=== PATIENT | male | born 1965 | race Caucasian/White ===

== ENCOUNTER → 2016-12-06 | Outpatient (CLI) | payer MEDICARE, BC ==
[2016-12-06 12:24] LABS: Basophils # (A) 0.1 k/uL (0-0.2); Basophils % (A) 1 %; CH 29.9; CHCM 33.4; Eosinophils # (A) 1.1 k/uL (0-0.7); Eosinophils % (A) 10 %; HCT 41.7 % (39.0-53.0); HDW 2.89; HGB 13.7 gm/dL (13.0-17.5); Luc # (Auto) 0.22; Luc % (Auto) 2; Lymphocytes # (A) 3.2 k/uL (1.0-4.8); Lymphocytes % (A) 29 %; MCH 29.5 pg (25.0-35.0); MCHC 32.8 g/dL (31.0-37.0); MCV 90.1 fL (80.0-100.0); Mean Platelet Volume 7.3; Monocytes # (A) 0.4 k/uL (0-1.0); Monocytes % (A) 3 %; Neutrophils # (A) 5.9 k/uL (1.3-7.7); Neutrophils % (A) 54 %; RBC 4.63 m/uL (4.30-5.90); RDW 13.5 % (11.5-15.5); WBC 10.9 k/uL (3.8-10.6); WBC (Perox) 11.08
[2016-12-06 12:55] LABS: ALT 33 U/L (21-72); AST 25 U/L (17-59); Alkaline Phosphatase 76 U/L (38-126); Anion Gap 9 mmol/L; Blood Urea Nitrogen 10 mg/dL (9-20); Calcium 9.4 mg/dL (8.4-10.2); Carbon Dioxide 29 mmol/L (22-30); Chloride 106 mmol/L (98-107); Glucose 89 mg/dL (74-99); Non-African American GFR(MDRD) >60 (>60 ml/min/1.73 sqM); Potassium 4.5 mmol/L (3.5-5.1); Sodium 144 mmol/L (137-145); Total Bilirubin 0.8 mg/dL (0.2-1.3)
[2016-12-06 13:42] LABS: Vitamin B12 450 pg/mL (239-931)
[2016-12-15 16:28] LABS: Mis test requested (Blood) JC Virus Ab Titer
== END | disposition home or self-care (01) ==
LOC: LABWHC1 11:11
PROVIDERS: ATTEND Psychiatry & Neurology Neurology
DX: Z51.81 Encounter for therapeutic drug level monitoring (principal); Z79.899 Other long term (current) drug therapy
CPT/HCPCS: 36415; 80053; 82306; 82607; 82747; 84443; 85025

== ENCOUNTER → 2017-04-26 | Outpatient (CLI) | payer BC, MEDICARE ==
--- NOTE | 2017-04-26 14:27 | MR ---
EXAMINATION TYPE: MR brain/cspine wo/w DATE OF EXAM: 04/26/2017 COMPARISON: Prior MR cervical spine 08/20/2015, MR brain 06/15/2015 HISTORY: MS TECHNIQUE: Multiplanar, multisequence images of the brain and cervical spine is performed without and with IV co ntrast, utilizing 15 mL intravenous MultiHance . FINDINGS: Cervical spine: Mild degenerative disc changes are again noted. Cervical cord signal is stable, abnor mal increased signal on T2-weighted images at the C5 level to the left midline and at C3-4 to the rig ht again noted. Loss of disc height and signal greatest at C5-6. Lateral extension of endplate disc c omplex results in left-sided foraminal encroachment left greater than right, anterolateral mass effec t on the thecal sac as on prior exam. No significant central canal stenosis. Cervical medullary junct ion is maintained. No abnormal enhancement following contrast administration. IMPRESSION: Stable findings. Brain MRI: There is no restricted diffusion. There is no extra-axial fluid collection. The white mat ter demyelination changes are again noted as on prior exam in the periventricular, pericallosal and s ubcortical locations. There is perhaps slight interval increase in size of left frontal lesions on ax ial image 19 5 fractions of a millimeter, there are differences in technique however. No abnormal enh ancement following contrast administration. The ventricular system and cisternal spaces are normal in size and appearance. The brain volume is age appropriate. Midline structures demonstrate normal morphology. The craniocervical junction appears within normal limits. Post contrast images demonstrate no abnormal enhancement. The dural venous sinuses appear pa tent. The visualized sinuses are clear and the globes are intact. IMPRESSION: Findings are similar to prior exam and compatible with patient's history of multiple scle rosis.
== END | disposition home or self-care (01) ==
LOC: RADMRIMAIN 12:17
PROVIDERS: ATTEND Psychiatry & Neurology Neurology
DX: G35 Multiple sclerosis (principal)
CPT/HCPCS: 70553; 72156; A9577

== ENCOUNTER → 2017-04-27 | Outpatient (CLI) | payer BC, MEDICARE ==
--- NOTE | 2017-04-27 13:54 | MR ---
EXAMINATION TYPE: MR thoracic spine wo/w con DATE OF EXAM: 04/27/2017 COMPARISON: 08/20/2015 HISTORY: Multiple Sclerosis CONTRAST: Standard multiplanar, multisequence MRI departmental protocol utilizing 15 mL intravenous MultiHance gadolinium contrast. FINDINGS: At the T6-T7 level there is a small central disc herniation with effacement of thecal sac. This does result in mild mass effect upon the spinal cord. At T7-T8 there is a tiny right paracentral disc protrusion. No cord contact. Mild effacement of theca l sac. Moderate degenerative disc disease. At T8-T9 there is a small right paracentral disc herniation with effacement of thecal sac. No definit e cord contact. Although there is mass effect on the cord secondary to thecal sac compression anterio rly laterally on the right. At T9-T10 is a broad-based right paracentral disc herniation with moderate effacement of thecal sac. Mild right-sided foraminal encroachment. At T10-T11 there is a central disc bulge but no cord contact or canal stenosis. Neural foramina paten t. Remaining levels demonstrate no disc herniation, canal stenosis or foraminal encroachment. No definite abnormal signal within the spinal cord on today's exam. Motion artifact limits distal mar gin of the spinal cord including the conus medullaris. IMPRESSION: 1. Multilevel small disc herniation or protrusions as discussed above with the most marked changes se en at T6-T7 and T9-T10 with right moderate effacement of thecal sac. Although there is no cord contac t there is mass effect on the spinal cord due to thecal sac compression. Findings appear stable from previous exam. 2. No definite abnormal signal or enhancement within the spinal cord on today's exam.
== END | disposition home or self-care (01) ==
LOC: RADMRIMAIN 12:11
PROVIDERS: ATTEND Psychiatry & Neurology Neurology
DX: M51.24 Other intervertebral disc displacement, thoracic region (principal)
CPT/HCPCS: 72157; A9577

== ENCOUNTER → 2018-01-09 | Outpatient (CLI) | payer BC, MEDICARE ==
[2018-01-09 11:59] LABS: Basophils # (A) 0.1 k/uL (0-0.2); Basophils % (A) 1 %; Eosinophils # (A) 1.2 k/uL (0-0.7); Eosinophils % (A) 12 %; HCT 39.1 % (39.0-53.0); HGB 13.7 gm/dL (13.0-17.5); Lymphocytes # (A) 3.5 k/uL (1.0-4.8); Lymphocytes % (A) 33 %; MCH 29.4 pg (25.0-35.0); MCHC 35.1 g/dL (31.0-37.0); MCV 83.6 fL (80.0-100.0); Mean Platelet Volume 6.6; Monocytes # (A) 0.4 k/uL (0-1.0); Monocytes % (A) 4 %; Neutrophils # (A) 5.2 k/uL (1.3-7.7); Neutrophils % (A) 49 %; Platelet Count 286 k/uL (150-450); RBC 4.67 m/uL (4.30-5.90); RDW 13.5 % (11.5-15.5); WBC 10.6 k/uL (3.8-10.6)
[2018-01-09 12:09] LABS: ALT 21 U/L (21-72); AST 23 U/L (17-59); Albumin 4.3 g/dL (3.5-5.0); Alkaline Phosphatase 97 U/L (38-126); Anion Gap 12 mmol/L; Blood Urea Nitrogen 17 mg/dL (9-20); Calcium 9.2 mg/dL (8.4-10.2); Carbon Dioxide 25 mmol/L (22-30); Chloride 108 mmol/L (98-107); Glucose 119 mg/dL (74-99); Potassium 3.8 mmol/L (3.5-5.1); Sodium 145 mmol/L (137-145); Total Bilirubin 0.3 mg/dL (0.2-1.3); Total Protein 6.9 g/dL (6.3-8.2)
== END | disposition home or self-care (01) ==
LOC: LABWHC1 11:32
PROVIDERS: ATTEND Psychiatry & Neurology Neurology
DX: G35 Multiple sclerosis (principal); T50.905A Adverse effect of unspecified drugs, medicaments and biological substances, initial encounter; Z79.899 Other long term (current) drug therapy
CPT/HCPCS: 36415; 80053; 82306; 82607; 85025; 86704; 86706; 87340; 87798

== ENCOUNTER → 2018-08-14 | Outpatient (CLI) | payer BC, MEDICARE ==
--- NOTE | 2018-08-14 20:57 | MR ---
EXAMINATION TYPE: MR brain/cspine wo/w DATE OF EXAM: 08/14/2018 COMPARISON: Prior MRI brain and cervical spine April 26, 2017 HISTORY: Neck pain, rt arm weakness, F/U MS, TECHNIQUE: Multiplanar, multisequence images of the cervical spine, brain, and brainstem are all performed witho ut and with IV contrast, utilizing 7.5 mL intravenous Gadavist gadolinium contrast is administered in travenously. Demyelinating disease protocol with additional Sagittal Flair sequence performed. Due t o patient spasm and cramping could not complete additional PD sagittal sequence cervical spine. FINDINGS: BRAIN: T2 Lesions Present : Yes Approximate Number of Lesions: Estimate approximately 40 Locations Identified : Predominantly deep and periventricular Size of Reference Lesion(s): Only T2 axial image is performed without significant artifact. Stable 5 mm left frontal lesion at lev el of centrum semiovale axial image 23 is noted for reference. Enhancing Lesion(s) Present: Postcontrast brain images cannot be performed due to patient's symptoms. T1 Hypointense Lesion(s) Present: Yes Change from Prior: Difficult to accurately assess Diffusion weighted images demonstrate no evidence of a recent infarct or other diffusion abnormality. There is no worrisome extra-axial fluid collection. There is ventricular and sulcal prominence cons istent with mild diffuse cerebral atrophy redemonstrated. Midline structures demonstrate normal morphology. The craniocervical junction appears within normal limits. Normal vascular flow voids on noncontrast T2-weighted images. The visualized sinuses are scotty r and the globes are intact. IMPRESSION: Markedly suboptimal study due to patient's symptoms. Background mild diffuse cerebral atr ophy and fairly moderate white matter changes most likely on basis of known multiple sclerosis. Satis factory post contrast imaging of brain are performed. No obvious change but suboptimal study noted. C-SPINE: FINDINGS: Significant motion artifact degradation noted. Sagittal images of the cervical spine show t he craniocervical junction to remain within normal limits. The cervical and upper thoracic spinal co rd is grossly normal in course, caliber, and signal. Vertebral alignment is stable and anatomic. Th e vertebral body and intravertebral disk heights are normal. Small posterior disc herniation C5-C6 an d C6-C7 level are redemonstrated effaces the anterior thecal sac. The bone marrow signal intensity is within normal limits. No obvious abnormal enhancement but artifact degradation is noted. Axial images show significant artifact degradation but C2-C3 through C4-C5 levels are felt within nor mal limits. Axial images at C5-C6 level demonstrates broad-based posterior disc protrusion effacing anterior thec al sac and causing moderate bilateral neural foraminal narrowing axilla image 25. No significant lauren ge from prior. Axial images at C6-C7 level show focal left paracentral disc protrusion effacing anterolateral thecal sac and causing asymmetric moderate left-sided neural foraminal narrowing on axial image 20 From prior. Right-sided neural foramen is patent. Axial images at C7-T1 level are felt within normal limits. IMPRESSION: Suboptimal study. No convincing evidence of demyelinating disease involvement. No suspici ous enhancement. Stable degenerative change C5-C6 level. New eccentric disc herniation C6-C7 level.
== END | disposition home or self-care (01) ==
LOC: RADMRIMAIN 18:02
PROVIDERS: ATTEND Psychiatry & Neurology Neurology
DX: G31.89 Other specified degenerative diseases of nervous system (principal); G35 Multiple sclerosis; M50.223 Other cervical disc displacement at C6-C7 level; M47.812 Spondylosis without myelopathy or radiculopathy, cervical region; R90.89 Other abnormal findings on diagnostic imaging of central nervous system
CPT/HCPCS: 70553; 72156; A9585

== ENCOUNTER → 2018-08-15 | Outpatient (CLI) | payer BC, MEDICARE ==
--- NOTE | 2018-08-16 00:17 | MR ---
EXAMINATION TYPE: MR thoracic spine wo/w con DATE OF EXAM: 08/15/2018 COMPARISON: 04/27/2017 HISTORY: Multiple sclerosis weakness CONTRAST: Standard multiplanar, multisequence MRI departmental protocol utilizing 7.5 mL intravenous Gadavist g adolinium contrast. FINDINGS: Thoracic vertebra have fairly normal spacing and alignment. There is no compression fractur e. There is posterior spur formation of the endplates at C5-6 and slight encroachment on the spinal c anal. At T7-8 there is small posterior disc bulging. There is mild posterior disc herniation at T9-10 . I do not see any significant spinal stenosis. The thoracic spinal cord is fairly normal signal galdino josie. There is no edema. There is no thoracic compression fracture. The contrast images show no pathol ogic enhancement. IMPRESSION: Multilevel mild degenerative disc changes as above. No fracture. No evidence of demyelinating disease of the thoracic spinal cord. There is suggestion of increased signal in the cervical cord at C3 and C4 level that could relate to demyelinating disease.
== END | disposition home or self-care (01) ==
LOC: RADMRIMAIN 17:50
PROVIDERS: ATTEND Psychiatry & Neurology Neurology
DX: M51.24 Other intervertebral disc displacement, thoracic region (principal); G35 Multiple sclerosis
CPT/HCPCS: 72157; A9585

== ENCOUNTER → 2018-08-23 | Outpatient (CLI) | payer BC, MEDICARE ==
--- NOTE | 2018-08-23 11:36 | MR ---
EXAMINATION TYPE: MR brain w con DATE OF EXAM: 08/23/2018 COMPARISON: Recent MRI brain August 14, 2018 HISTORY: Multiple sclerosis TECHNIQUE: Multiplanar, multisequence images of the brain and brainstem is performed with IV contrast, utilizing 7.5 mL intravenous Gadavist . FINDINGS: Dynamic post contrast images fail to show enhancing lesions in the parenchyma bilaterally. Scattered lesions of T1 hypointensity and T2 hyperintensity are redemonstrated. IMPRESSION: No enhancing plaques to suggest active multiple sclerosis identified.
== END ==
LOC: RADMRIMAIN 10:48
PROVIDERS: ATTEND Psychiatry & Neurology Neurology
DX: G35 Multiple sclerosis (principal)
CPT/HCPCS: 70552; A9585

== ENCOUNTER → 2018-09-10 | Outpatient (CLI) | payer BC, MEDICARE ==
[~2018-09-10] MED LIST: SODIUM CHLORIDE 0.9% 500 ML 500 ML in EMPTY BAG 1 BAG IV PRN
[2018-09-10 10:24] VITALS: BP 167/99; PULSE 102; RESP 16; TEMP 98
== END ==
LOC: PROCWHC3 10:09
PROVIDERS: ATTEND Psychiatry & Neurology Neurology
DX: G35 Multiple sclerosis (principal)
CPT/HCPCS: 96365; J2930

== ENCOUNTER → 2019-01-17 | Outpatient (CLI) | payer MEDICARE, BC ==
[2019-01-17 11:09] LABS: Basophils # (A) 0.1 k/uL (0-0.2); Basophils % (A) 1 %; Eosinophils # (A) 0.4 k/uL (0-0.7); Eosinophils % (A) 3 %; HCT 45.2 % (39.0-53.0); HGB 14.8 gm/dL (13.0-17.5); Lymphocytes % (A) 18 %; MCH 28.3 pg (25.0-35.0); MCHC 32.7 g/dL (31.0-37.0); MCV 86.7 fL (80.0-100.0); Mean Platelet Volume 7.5; Monocytes # (A) 0.5 k/uL (0-1.0); Monocytes % (A) 5 %; Neutrophils # (A) 7.8 k/uL (1.3-7.7); Neutrophils % (A) 72 %; Platelet Count 340 k/uL (150-450); RBC 5.22 m/uL (4.30-5.90); WBC 10.8 k/uL (3.8-10.6)
[2019-01-17 16:15] LABS: Albumin 4.8 g/dL (3.80-4.90); Albumin/Globulin Ratio 2.82 (1.60-3.17); Anion Gap 10.8 mmol/L (4.00-12.00); Calcium 9.3 mg/dL (8.7-10.3); Carbon Dioxide 25.2 mmol/L (21.6-31.8); Globulin 1.7 g/dL (1.6-3.3); Potassium 4.2 mmol/L (3.5-5.5); Total Bilirubin 0.3 mg/dL (0.2-1.2); Total Protein 6.5 g/dL (6.2-8.2)
== END | disposition home or self-care (01) ==
LOC: LABWHC1 09:41
PROVIDERS: ATTEND Psychiatry & Neurology Neurology
DX: G35 Multiple sclerosis (principal); M46.02 Spinal enthesopathy, cervical region; Z91.81 History of falling
CPT/HCPCS: 36415; 80053; 85025

== ENCOUNTER → 2019-08-26 | Outpatient (CLI) | payer BC, MEDICARE ==
[2019-08-26 13:42] LABS: Basophils # (A) 0.2 k/uL (0-0.2); Basophils % (A) 2 %; Eosinophils # (A) 0.3 k/uL (0-0.7); Eosinophils % (A) 3 %; HCT 44.3 % (39.0-53.0); HGB 14.5 gm/dL (13.0-17.5); Lymphocytes # (A) 1.7 k/uL (1.0-4.8); Lymphocytes % (A) 15 %; MCH 29.4 pg (25.0-35.0); MCHC 32.7 g/dL (31.0-37.0); MCV 89.7 fL (80.0-100.0); Mean Platelet Volume 6.6; Monocytes # (A) 0.4 k/uL (0-1.0); Monocytes % (A) 4 %; Neutrophils # (A) 8.3 k/uL (1.3-7.7); Neutrophils % (A) 75 %; Platelet Count 364 k/uL (150-450); RBC 4.93 m/uL (4.30-5.90); RDW 12.5 % (11.5-15.5); WBC 11.2 k/uL (3.8-10.6)
[2019-08-26 21:25] LABS: African American GFR (CKD) 100.6 (60.0-200.0); Albumin 4.5 g/dL (3.80-4.90); Albumin/Globulin Ratio 2.5 (1.60-3.17); Anion Gap 10.9 mmol/L (4.00-12.00); Calcium 9.2 mg/dL (8.7-10.3); Carbon Dioxide 23.1 mmol/L (21.6-31.8); Globulin 1.8 g/dL (1.6-3.3); Potassium 4.1 mmol/L (3.5-5.5); Total Bilirubin 0.3 mg/dL (0.2-1.2); Total Protein 6.3 g/dL (6.2-8.2)
== END ==
LOC: LABWHC1 12:46
PROVIDERS: ATTEND Psychiatry & Neurology Neurology
DX: G35 Multiple sclerosis (principal); T50.995A Adverse effect of other drugs, medicaments and biological substances, initial encounter
CPT/HCPCS: 36415; 80053; 85025

== ENCOUNTER → 2019-12-12 | Day surgery (SDC) | payer BC, MEDICARE ==
[2019-12-09 15:08] VITALS: BMI 28.3
[~2019-12-12] MED LIST changes: +LACTATED RINGERS 1,000 ML IV SCH; +LIDOCAINE 1% 20 ML VIAL (10MG/ML) FOR IV START INTRADERMA PRN; +LIDOCAINE 1% INJ 10MG/ML (20 ML MDV) ONE; +ONDANSETRON 4 MG/2 ML VIAL IVP ONE; +PROPOFOL 10 MG/ML 20 ML VIAL IV ONE; -SODIUM CHLORIDE 0.9% 500 ML 500 ML in EMPTY BAG 1 BAG IV PRN
[2019-12-12 08:46] VITALS: RESP 16; TEMP 98.2
--- NOTE | 2019-12-12 09:29 | P.GSHP ---
History of Present Illness H&P Date: 12/12/19 Chief Complaint: Screening colonoscopy This a 54-year-old male been safe for screening colonoscopy. Patient never had a previous colonoscopy. Past Medical History Past Medical History: Neurologic Disorder Additional Past Medical History / Comment(s): closed head injury at 22 yrs old, primary progressive MS, spinal taps x2 History of Any Multi-Drug Resistant Organisms: None Reported Past Surgical History: No Surgical Hx Reported Past Anesthesia/Blood Transfusion Reactions: No Reported Reaction Additional Past Anesthesia/Blood Transfusion Reaction / Comment(s): has never had anesthesia Smoking Status: Current every day smoker - Past Family History Mother Family Medical History: No Reported History Medications and Allergies Home Medications Medication Instructions Recorded Confirmed Type Baclofen [Lioresal] 10 mg PO TID 04/21/14 12/12/19 History Gabapentin [Neurontin] 50 mg PO HS 04/21/14 12/12/19 History HYDROcodone/APAP 7.5-325MG [[place] 1 tab PO TID 07/27/18 12/12/19 History 7.5-325] Diazepam [Valium] 2 mg PO TID 12/09/19 12/12/19 History Multivitamin/Iron/Folic Acid 1 each PO DAILY 12/09/19 12/12/19 History [Centrum Adults Tablet] Naltraxzone 2.5 mg PO DAILY 12/09/19 12/12/19 History Allergies Allergy/AdvReac Type Severity Reaction Status Date / Time No Known Allergies Allergy Verified 12/12/19 08:47 Surgical - Exam Vital Signs Temp Pulse Resp BP Pulse Ox 98.2 F 102 H 16 160/94 99 12/12/19 08:39 12/12/19 08:39 12/12/19 08:39 12/12/19 08:39 12/12/19 08:39 - General well developed, well nourished, no distress - Eyes PERRL - ENT normal pinna - Neck no masses - Respiratory normal expansion - Cardiovascular Rhythm: regular - Abdomen Abdomen: soft, non tender Assessment and Plan Assessment: We'll perform screening colonoscopy
--- NOTE | 2019-12-12 09:41 | P.OP ---
Date of Procedure: 12/12/19 Preoperative Diagnosis: Screening colonoscopy Postoperative Diagnosis: Diverticulosis Procedure(s) Performed: Colonoscopy Anesthesia: MAC Surgeon: Keegan Marquez Pathology: none sent Condition: stable Disposition: PACU Description of Procedure: Patient's placed on the endoscopy table in the lateral position. He received IV sedation. Digital rectal was performed which revealed no abnormalities. Flexible colonoscope was then placed patient anus passed throughout the entire colon. The ileocecal valve was visualized. Cecum, ascending and transverse colon appeared normal. In the descending and; there is mild diverticular changes. Scope was then brought back the rectum this appeared normal. Scope was withdrawn for patient.
[2019-12-12 10:04] VITALS: BP 168/98; PULSE 69
== END ==
LOC: ORWHC2ENDO 08:24
PROVIDERS: ATTEND Surgery
DX: Z12.11 Encounter for screening for malignant neoplasm of colon (principal); F17.200 Nicotine dependence, unspecified, uncomplicated; Z86.69 Personal history of other diseases of the nervous system and sense organs; Z79.891 Long term (current) use of opiate analgesic; Z79.899 Other long term (current) drug therapy
CPT/HCPCS: J2405; J2001; J2704; G0121